=== PATIENT | female | born 1995 | race Caucasian/White ===

== ENCOUNTER 2016-07-13 16:42 | Emergency (ER) | payer MEDICAID ==
[~2016-07-13] VITALS: Ht 167.6 cm; Wt 49.9 kg
[2016-07-13] MEDS ORDERED: FERR325T41 PO (16:50)
[2016-07-13 17:15] LABS: *URINE HCG, QUAL NEGATIVE (NEGATIVE)
[2016-07-13 17:17] LABS: *BILIRUBIN,URIN NEGATIVE (NEGATIVE); *BLOOD, URINE NEGATIVE (NEGATIVE); *COLOR,URINE YELLOW (YELLOW); *KETONES,URINE NEGATIVE (NEGATIVE); *PROTEIN,URINE NEGATIVE (NEGATIVE); *UROBILINOGEN,URINE 0.2 E.U./dl (NORMAL); LEUKOCYTE ESTERASE ,URINE 1+ (NEGATIVE); NITRITE, URINE NEGATIVE (NEGATIVE); UGLUCOSE NEGATIVE (NEGATIVE)
[2016-07-13 17:24] LABS: *CLARITY,URINE SLIGHTLY HAZY (CLEAR)
[2016-07-13 17:25] LABS: BACTERIA,URINE MODERATE /HPF (NONE SEEN); MUCUS,URINE FEW /LPF (0-FEW); SQUAMOUS EPITHELIAL CELL,UR MODERATE /HPF (NONE SEEN)
--- NOTE | 2016-07-13 21:33 | NUR ---
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
--- NOTE | 2016-07-13 21:54 | NUR ---
Patient discharged to home in stable conditon. Written and verbal after care instructions given. Patient verbalizes understanding of instructions.
[2016-07-13] MEDS ORDERED: ACETAMINOPHEN 325 MG TABLET ONE (23:08)
== END 2016-07-13 21:55 | disposition home or self-care (01) ==
LOC: ER 16:45
DX: R10.30 Lower abdominal pain, unspecified (principal); K92.1 Melena
CPT/HCPCS: 84703; A4663

== ENCOUNTER 2019-05-16 03:54 | Emergency (ER) | payer MEDICAID ==
[~2019-05-16] VITALS: Ht 165.1 cm; Wt 53.5 kg
[2019-05-16 04:26] LABS: *BILIRUBIN,URIN NEGATIVE (NEGATIVE); *BLOOD, URINE NEGATIVE (NEGATIVE); *CLARITY,URINE CLEAR (CLEAR); *COLOR,URINE YELLOW (YELLOW); *KETONES,URINE NEGATIVE (NEGATIVE); *UROBILINOGEN,URINE 0.2 E.U./dl (NORMAL); LEUKOCYTE ESTERASE ,URINE TRACE (NEGATIVE); NITRITE, URINE NEGATIVE (NEGATIVE); PH,URINE 5.5 (5.0-8.0); UGLUCOSE NEGATIVE (NEGATIVE)
[2019-05-16 04:32] LABS: *URINE HCG, QUAL NEGATIVE (NEGATIVE)
[2019-05-16 04:34] LABS: BACTERIA,URINE NONE SEEN /HPF (NONE SEEN); RBC,URINE 0-3 /HPF (0-3); SQUAMOUS EPITHELIAL CELL,UR MODERATE /HPF (NONE SEEN)
[2019-05-16 04:38] VITALS: BP 128/89
--- NOTE | 2019-05-16 04:38 | NUR ---
Patient discharged to home in stable conditon. Written and verbal after care instructions given. Patient verbalizes understanding of instructions.
== END 2019-05-16 04:39 | disposition home or self-care (01) ==
LOC: ER 04:05
DX: F41.9 Anxiety disorder, unspecified (principal)
CPT/HCPCS: 84703; 87086; A4663

== ENCOUNTER 2020-11-01 10:18 | Emergency (ER) | payer MEDICAID ==
[~2020-11-01] VITALS: Ht 162.6 cm; Wt 52.2 kg
[2020-11-01] MEDS ORDERED: IV NORMAL SALINE 1000 ML BAG IV ONE (10:45)
[2020-11-01 10:54] LABS: HEMATOCRIT 35.1 % (31.2-41.9); MEAN CORPUSCULAR VOLUME 70.9 fL (75.5-95.3); PLATELET COUNT (AUTO) 320 K/uL (179-408)
[2020-11-01 10:55] LABS: *BILIRUBIN,URIN 1+ (NEGATIVE); *BLOOD, URINE 2+ (NEGATIVE); *CLARITY,URINE SLIGHTLY CLOUDY (CLEAR); *COLOR,URINE YELLOW (YELLOW); *KETONES,URINE NEGATIVE (NEGATIVE); *UROBILINOGEN,URINE 0.2 E.U./dl (NORMAL); LEUKOCYTE ESTERASE ,URINE 2+ (NEGATIVE); NITRITE, URINE NEGATIVE (NEGATIVE); UGLUCOSE NEGATIVE (NEGATIVE)
[2020-11-01 11:05] LABS: ALANINE AMINOTRANSFERASE 17 U/L (14-59); ALKALINE PHOSPHATASE 92 U/L (50-136); ASPARTATE AMINOTRANSFERASE 20 U/L (15-37); BILIRUBIN,DIRECT 0.2 mg/dL (0.0-0.2); BILIRUBIN,TOTAL 0.9 mg/dL (0.2-1.0); CARBON DIOXIDE 25 mmol/L (21-32); CHLORIDE 102 mmol/L (98-107); CREATININE 0.8 mg/dL (0.6-1.3); GLUCOSE 98 mg/dL (74-106); LIPASE 70 U/L (73-393); POTASSIUM 3.1 mmol/L (3.5-5.1); TOTAL PROTEIN, SERUM 8.5 g/dL (6.4-8.2); UREA NITROGEN, BLOOD 6 mg/dL (7-18)
[2020-11-01] MEDS ORDERED: POTASSIUM CHLORIDE 20 MEQ TAB.PRT.SR PO ONE (11:45)
[2020-11-01] MEDS ORDERED: MAGNESIUM SULFATE/D5W 100 ML IV SCH (11:45)
[2020-11-01] MEDS ORDERED: MAGNESIUM SULFATE/D5W 100 ML ONE ×2 (12:11→12:59)
[2020-11-01] MEDS ORDERED: POTASSIUM CHLORIDE 20 MEQ TAB.PRT.SR ONE (12:11)
[2020-11-01 13:33] LABS: BACTERIA,URINE MODERATE /HPF (NONE SEEN); SQUAMOUS EPITHELIAL CELL,UR MODERATE /HPF (NONE SEEN)
[2020-11-01] MEDS ORDERED: DIPH1TAB PO (13:38)
--- NOTE | 2020-11-01 13:54 | NUR ---
Patient discharged to home in stable condition. Written and verbal after care instructions given. Patient verbalizes understanding of instructions. Stressed follow up or return to ER for worsening s/s.
[2020-11-01 13:55] VITALS: BP 123/77
== END 2020-11-01 14:19 | disposition home or self-care (01) ==
LOC: ER 10:19
DX: R10.84 Generalized abdominal pain (principal); E86.0 Dehydration; R19.7 Diarrhea, unspecified; E87.6 Hypokalemia
CPT/HCPCS: 36415; 80048; 80076; 81001; 83690; 84702; 85025; 87086; 93005; 96361; 96365; 96366; 99284; J3475 ×2; A4663